=== PATIENT | male | born 1970 | race Caucasian/White ===

== ENCOUNTER 2023-01-07 23:28 | Emergency (ER) | payer OTHER ==
[~2023-01-07] VITALS: Ht 185.4 cm; Wt 99.8 kg
--- NOTE | 2023-01-07 23:30 | NUR ---
Pt has some rashes all over, denies pain
[2023-01-07 23:42] VITALS: BP 144/92; PULSE 83; RESP 23; TEMP 98; O2SAT 98
--- NOTE | 2023-01-07 23:45 | NUR ---
pt went to the chair
[2023-01-07] MEDS ORDERED: PRED20TA5 PO (23:46)
[2023-01-07] MEDS ORDERED: DIPH25TA53 PO (23:46)
[2023-01-07] MEDS ORDERED: FAMO-90 PO (23:46)
[2023-01-07] MEDS ORDERED: FAMOTIDINE 20 MG TAB PO ONE (23:50)
[2023-01-07] MEDS ORDERED: predniSONE 20 MG TAB PO ONE (23:50)
[2023-01-07 23:55] VITALS: BP 144/92; PULSE 83; RESP 23; TEMP 98; O2SAT 98
--- NOTE | 2023-01-08 01:44 | NUR ---
Dr. Capone examining patient.
--- NOTE | 2023-01-08 02:01 | NUR ---
Patient discharged with v/s stable. Written and verbal after care instructions given and explained. Patient alert, oriented and verbalized understanding of instructions. Ambulatory with steady gait. All questions addressed prior to discharge. ID band removed. Patient advised to follow up with PMD. Rx of benadryl, pecid, deltasone given. Patient educated on indication of medication including possible reaction and side effects. Opportunity to ask questions provided and answered.
== END 2023-01-08 02:01 | disposition home or self-care (01) ==
LOC: MED 23:28
DX: L50.0 Allergic urticaria (principal); Z79.899 Other long term (current) drug therapy
CPT/HCPCS: 99284; J7512; Q0163

== ENCOUNTER 2023-01-27 19:45 | Emergency (ER) | payer OTHER ==
[~2023-01-27] VITALS: Ht 185.4 cm; Wt 97.5 kg
[~2023-01-27 19:45] MED LIST: DIPH25TA53 PO; FAMO-90 PO; PRED20TA5 PO
[2023-01-27 20:11] VITALS: BP 133/91; PULSE 104; RESP 16; TEMP 97.4; O2SAT 97
--- NOTE | 2023-01-27 22:19 | NUR ---
pt to [facility]
[2023-01-27] MEDS ORDERED: KETOROLAC 30 MG/ML VIAL IM ONE (23:00)
[2023-01-27] MEDS ORDERED: AMOXIL/CLAVULANATE 875/125 MG 1 TAB PO ONE (23:00)
--- NOTE | 2023-01-27 23:00 | NUR ---
Patient ambulated to bed 6.
[2023-01-28] MEDS ORDERED: LIDOCAINE 2% 100 MG/5 ML SYR IVP ONE (00:08)
[2023-01-28] MEDS ORDERED: LIDOCAINE MPF 1% 5 ML ONE (00:09)
[2023-01-28] MEDS ORDERED: LIDOCAINE MPF 2% 100 MG/5 ML VIAL INJ ONE (00:10)
--- NOTE | 2023-01-28 00:12 | NUR ---
ERMD at bedside for laceration suturing.
--- NOTE | 2023-01-28 00:19 | NUR ---
Patient was getting out of his car when an unprovoked stray dog ran towards him and bit his right forearm causing a laceration with spontaneous bleeding. No fever or limited movement on affected area noted. Patient denies updated tetanus vaccination. PMHx: HTN, DM NKA
[2023-01-28] MEDS ORDERED: BACITRACIN OINT 500 UNITS/GM PKT TP ONE (00:30)
[2023-01-28] MEDS ORDERED: ACET-2619 PO ×2 (00:32→01:21)
[2023-01-28] MEDS ORDERED: BACI-105 TP ×2 (00:32→01:21)
[2023-01-28] MEDS ORDERED: AMOX1TAB8 PO ×2 (00:32→01:21)
--- NOTE | 2023-01-28 00:50 | NUR ---
Patient discharged with v/s stable. Written and verbal after care instructions given and explained. Patient alert, oriented and verbalized understanding of instructions. Ambulatory with steady gait. All questions addressed prior to discharge. ID band removed. Patient advised to follow up with PMD. Rx of Tylenol, Bacitracin & Amox-Clav given. Patient educated on indication of medication including possible reaction and side effects. Opportunity to ask questions provided and answered.
[2023-01-28 00:59] VITALS: BP 126/78; PULSE 91; RESP 15; TEMP 97.4; O2SAT 91
== END 2023-01-28 00:50 | disposition home or self-care (01) ==
LOC: MED 19:45
DX: S51.811A Laceration without foreign body of right forearm, initial encounter (principal); Z23 Encounter for immunization; E11.9 Type 2 diabetes mellitus without complications; I10 Essential (primary) hypertension; Z79.899 Other long term (current) drug therapy; W54.0XXA Bitten by dog, initial encounter; Y93.89 Activity, other specified; Y92.89 Other specified places as the place of occurrence of the external cause; Y99.8 Other external cause status
CPT/HCPCS: 12002; 73090; 90471; 90715; 96372; 99284; J1885; J2001

== ENCOUNTER 2023-10-02 09:46 | Inpatient (IN) | payer OTHER ==
[~2023-10-02] VITALS: Ht 185.4 cm; Wt 99.3 kg
[2023-10-02] VITALS (10 sets, daily range): BP systolic 135–164; BP diastolic 80–112; PULSE 85–124; RESP 17–22; TEMP 98–98.5; O2SAT 97–99
[~2023-10-02 09:46] MED LIST changes: +ACET-2619 PO; +AMOX1TAB8 PO; +BACI-105 TP
[2023-10-02] MEDS: NACL 0.9% 1,000 ML IV ONE (11:00)
[2023-10-02 11:20] LABS: BASOPHILS % (AUTO) 0.3 % (0.0-2.0); EOSINOPHILS # (AUTO) 0.1 K/uL (0-0.4); EOSINOPHILS % (AUTO) 1.3 % (0.0-4.0); HEMATOCRIT 47.9 % (36-52); HEMOGLOBIN 16.7 g/dL (12.0-18.0); LYMPHOCYTES % (AUTO) 11.2 % (20.5-51.1); MEAN CORPUSCULAR HEMOGLOBIN 33 pg (27-31); MEAN CORPUSCULAR HGB CONC 35 g/dL (33-37); MEAN CORPUSCULAR VOLUME 94.3 fL (80-94); MONOCYTES # (AUTO) 0.6 K/uL (0.8-1.0); MONOCYTES % (AUTO) 6.3 % (1.7-9.3); NEUTROPHILS # (AUTO) 7.4 K/uL (1.8-7.7); NEUTROPHILS % (AUTO) 80.9 % (42.2-75.2); PLATELET COUNT (AUTO) 245 K/uL (140-450); RED BLOOD CELL COUNT(AUTO) 5.08 MIL/uL (4.20-6.10); RED CELL DISTRIBUTION WIDTH 13.6 % (11.6-13.7); WHITE BLOOD COUNT (AUTO) 9.2 K/uL (4.8-10.8)
[2023-10-02 11:29] LABS: ANION GAP 17.8 (8-16); CALCIUM 9.5 mg/dL (8.5-10.1); CARBON DIOXIDE 25.2 mmol/L (21-32); CREATININE 0.8 mg/dL (0.6-1.3)
[2023-10-02 11:36] LABS: ALBUMIN 4.6 g/dL (3.4-5.0); BILIRUBIN,DIRECT 0.3 mg/dL (0.0-0.3); TOTAL BILIRUBIN 1.4 mg/dL (0.0-1.0); TOTAL PROTEIN, SERUM 10.4 g/dL (6.4-8.2)
[2023-10-02] MEDS: ONDANSETRON 4 MG/2 ML VIAL IVP ONE (11:52)
[2023-10-02] MEDS: fentaNYL citrate 0.05 MG/ML VIAL IVP ONE (12:00)
[2023-10-02] MEDS ORDERED: POLYETHYLENE GLYCOL 17 GM/PKT PO PRN (13:15)
[2023-10-02] MEDS ORDERED: ACETAMINOPHEN 325 MG TAB PO PRN (13:15)
[2023-10-02] MEDS ORDERED: MELATONIN 3 MG TAB PO PRN (13:15)
[2023-10-02] MEDS ORDERED: KCL 20 MEQ IN 100 mL PREMIX 200 ML IV PRN (13:15)
[2023-10-02] MEDS ORDERED: DEXTROSE 50% 50 ML SYR IVP PRN (13:20)
[2023-10-02] MEDS ORDERED: LORazepam 2 MG/ML VIAL IVP PRN (13:20)
[2023-10-02] MEDS: BLOOD GLUCOSE MONITORING 1 DEV DEV FS SCH (13:42)
[2023-10-02] MEDS: MORPHINE SULFATE 2 MG/ML SYR IVP PRN (13:44)
[2023-10-02] MEDS: NACL 0.9% 1,000 ML IV SCH ×2 (13:46→20:05)
[2023-10-02] MEDS: INSULIN LISPRO SLIDING SCALE 100 UNITS/ML VIAL SUBQ PRN (14:44)
[2023-10-02] MEDS: ONDANSETRON 4 MG/2 ML VIAL IVP PRN (15:40)
[2023-10-02] MEDS ORDERED: DAPA10TA PO (16:37)
[2023-10-02] MEDS ORDERED: METF-350 PO (16:37)
[2023-10-02] MEDS ORDERED: PANT40EC PO (16:37)
[2023-10-02] MEDS ORDERED: LISI-486 PO (16:37)
[2023-10-02] MEDS ORDERED: SIMV-373 PO (16:37)
[2023-10-02] MEDS: HYDROmorphone 1 MG/ML AMP IVP PRN ×2 (16:44→19:59)
[2023-10-02] MEDS: hydrALAZINE 20 MG/ML VIAL IVP PRN (18:37)
[2023-10-02] MEDS: HYDROcodone/APAP 5/325 MG 1 TAB TAB PO PRN (22:21)
[2023-10-03] VITALS (7 sets, daily range): BP systolic 132–152; BP diastolic 84–95; PULSE 101–116; RESP 18–20; TEMP 96.7–210.2; O2SAT 96–99
[2023-10-03 06:53] LABS: BASOPHILS % (AUTO) 0.1 % (0.0-2.0); EOSINOPHILS % (AUTO) 0.1 % (0.0-4.0); HEMATOCRIT 43.1 % (36-52); HEMOGLOBIN 15.3 g/dL (12.0-18.0); LYMPHOCYTES # (AUTO) 0.7 K/uL (2.0-11.5); LYMPHOCYTES % (AUTO) 7.3 % (20.5-51.1); MEAN CORPUSCULAR HEMOGLOBIN 34 pg (27-31); MEAN CORPUSCULAR HGB CONC 36 g/dL (33-37); MEAN CORPUSCULAR VOLUME 94.8 fL (80-94); MONOCYTES # (AUTO) 0.9 K/uL (0.8-1.0); MONOCYTES % (AUTO) 8.7 % (1.7-9.3); NEUTROPHILS # (AUTO) 8.5 K/uL (1.8-7.7); NEUTROPHILS % (AUTO) 83.8 % (42.2-75.2); PLATELET COUNT (AUTO) 210 K/uL (140-450); RED BLOOD CELL COUNT(AUTO) 4.54 MIL/uL (4.20-6.10); RED CELL DISTRIBUTION WIDTH 13.6 % (11.6-13.7); WHITE BLOOD COUNT (AUTO) 10.1 K/uL (4.8-10.8)
[2023-10-03 07:47] LABS: ALBUMIN 3.7 g/dL (3.4-5.0); ANION GAP 18.3 (8-16); CARBON DIOXIDE 19.6 mmol/L (21-32); CREATININE 0.6 mg/dL (0.6-1.3); MAGNESIUM 1.6 mg/dL (1.8-2.4); PHOSPHORUS 3.3 mg/dL (2.5-4.9); POTASSIUM 3.9 mmol/L (3.5-5.1); TOTAL BILIRUBIN 0.9 mg/dL (0.0-1.0); TOTAL PROTEIN, SERUM 7.3 g/dL (6.4-8.2)
[2023-10-03] MEDS: THIAMINE 200 MG/2 ML VIAL IM SCH (09:27)
[2023-10-03] MEDS: lisinopriL 10 MG TAB PO SCH (09:27)
[2023-10-03] MEDS: MAG SULF 2000 MG/WATER PREMIX 50 ML IV PRN (10:18)
[2023-10-04 06:56] LABS: BASOPHILS % (AUTO) 0.3 % (0.0-2.0); EOSINOPHILS # (AUTO) 0.1 K/uL (0-0.4); HEMATOCRIT 38.3 % (36-52); HEMOGLOBIN 13.2 g/dL (12.0-18.0); LYMPHOCYTES # (AUTO) 0.9 K/uL (2.0-11.5); LYMPHOCYTES % (AUTO) 13.7 % (20.5-51.1); MEAN CORPUSCULAR HEMOGLOBIN 33 pg (27-31); MEAN CORPUSCULAR HGB CONC 35 g/dL (33-37); MEAN CORPUSCULAR VOLUME 95.7 fL (80-94); MONOCYTES # (AUTO) 0.7 K/uL (0.8-1.0); MONOCYTES % (AUTO) 10.8 % (1.7-9.3); NEUTROPHILS # (AUTO) 4.8 K/uL (1.8-7.7); NEUTROPHILS % (AUTO) 73.2 % (42.2-75.2); PLATELET COUNT (AUTO) 171 K/uL (140-450); RED CELL DISTRIBUTION WIDTH 13.8 % (11.6-13.7); WHITE BLOOD COUNT (AUTO) 6.6 K/uL (4.8-10.8)
[2023-10-04 08:00] VITALS: BP 129/88; PULSE 89; RESP 18; TEMP 96.7; O2SAT 98
[2023-10-04 08:02] LABS: ANION GAP 14.3 (8-16); CALCIUM 7.5 mg/dL (8.5-10.1); CARBON DIOXIDE 21.3 mmol/L (21-32); CREATININE 0.6 mg/dL (0.6-1.3); MAGNESIUM 1.9 mg/dL (1.8-2.4); PHOSPHORUS 2.3 mg/dL (2.5-4.9); POTASSIUM 3.6 mmol/L (3.5-5.1); TOTAL PROTEIN, SERUM 6.4 g/dL (6.4-8.2)
[2023-10-04] MEDS: INSULIN LANTUS 100 UNITS/ML 10 ML VIAL SUBQ SCH (08:53)
[2023-10-04 14:00] LABS: AMPHETAMINE, URINE NEGATIVE ng/ml (NEG <=1000); BARBITURATE, URINE NEGATIVE ng/ml (NEG <=200); BENZODIAZEPINE, URINE NEGATIVE ng/mL (NEG <=200); CANNABINOID, URINE POSITIVE ng/mL (NEG <=50); COCAINE, URINE NEGATIVE ng/mL (NEG <=300); OPIATE, URINE POSITIVE ng/mL (NEG <=2000); PHENCYCLIDINE SCREEN,URINE NEGATIVE ng/mL (NEG <=25)
[2023-10-04 16:00] VITALS: BP 132/89; PULSE 107; RESP 18; TEMP 98.7; O2SAT 97
[2023-10-04 20:00] VITALS: RESP 18; O2SAT 98
[2023-10-05 00:11] VITALS: BP 136/74; PULSE 98; RESP 18; TEMP 96.8; O2SAT 98
[2023-10-05 06:41] LABS: BASOPHILS % (AUTO) 0.3 % (0.0-2.0); EOSINOPHILS # (AUTO) 0.2 K/uL (0-0.4); EOSINOPHILS % (AUTO) 3.4 % (0.0-4.0); HEMATOCRIT 38.5 % (36-52); HEMOGLOBIN 13.5 g/dL (12.0-18.0); LYMPHOCYTES # (AUTO) 0.8 K/uL (2.0-11.5); LYMPHOCYTES % (AUTO) 14.1 % (20.5-51.1); MEAN CORPUSCULAR HEMOGLOBIN 33 pg (27-31); MEAN CORPUSCULAR HGB CONC 35 g/dL (33-37); MEAN CORPUSCULAR VOLUME 94.7 fL (80-94); MONOCYTES # (AUTO) 0.8 K/uL (0.8-1.0); MONOCYTES % (AUTO) 13.1 % (1.7-9.3); NEUTROPHILS # (AUTO) 4.1 K/uL (1.8-7.7); NEUTROPHILS % (AUTO) 69.1 % (42.2-75.2); PLATELET COUNT (AUTO) 188 K/uL (140-450); RED BLOOD CELL COUNT(AUTO) 4.07 MIL/uL (4.20-6.10); RED CELL DISTRIBUTION WIDTH 13.5 % (11.6-13.7)
[2023-10-05 07:11] LABS: ANION GAP 15.2 (8-16); CALCIUM 8.2 mg/dL (8.5-10.1); CARBON DIOXIDE 23.3 mmol/L (21-32); CREATININE 0.6 mg/dL (0.6-1.3); MAGNESIUM 1.8 mg/dL (1.8-2.4); PHOSPHORUS 2.7 mg/dL (2.5-4.9); POTASSIUM 3.5 mmol/L (3.5-5.1); TOTAL BILIRUBIN 0.9 mg/dL (0.0-1.0); TOTAL PROTEIN, SERUM 6.7 g/dL (6.4-8.2)
[2023-10-05 08:00] VITALS: BP 144/95; PULSE 85; RESP 20; TEMP 98.2; O2SAT 99
[2023-10-05] MEDS ORDERED: GLUC-805 FS (09:58)
[2023-10-05] MEDS ORDERED: LANTUS SUBQ (09:58)
[2023-10-05] MEDS ORDERED: ACET-8905 PO (16:59)
[2023-10-05] MEDS ORDERED: METO-485 PO (16:59)
[2023-10-05] MEDS ORDERED: METR-435 PO (16:59)
== END 2023-10-05 19:04 | disposition home or self-care (01) | DRG 440 ==
LOC: MED 09:46 → MTU 13:15 → MIC 14:25 → MTU 10-03 00:50
PROVIDERS: ADMIT Family Medicine; ATTEND Family Medicine
DX: K85.20 Alcohol induced acute pancreatitis without necrosis or infection (principal); K21.9 Gastro-esophageal reflux disease without esophagitis; I10 Essential (primary) hypertension; E11.9 Type 2 diabetes mellitus without complications; E78.5 Hyperlipidemia, unspecified
CPT/HCPCS: 36415; 74160; 76705; 80048; 80053; 80076; 80305; 82948; 83690; 83735; 84100; 84478; 85025; 87081; 96374; 96375; 96376; 99285; G0482; J0360; J1170; J1644; J1815; J2270; J2405; J3010; J3411; J3475; Q0092; Q9967